=== PATIENT | male | born 2000 | race Caucasian/White ===

== ENCOUNTER 2023-08-19 01:34 | Emergency (ER) | payer BC ==
[2023-08-19] MEDS ORDERED: traMADol 50 MG Tab PO ONE (01:35)
[2023-08-19] MEDS ORDERED: Cyclobenzaprine 10 MG Tab PO ONE (01:35)
== END 2023-08-19 02:21 | disposition home or self-care (01) ==
LOC: FB.ED 01:34
DX: M43.6 Torticollis (principal)
CPT/HCPCS: 99283; A9270-GY